=== PATIENT | male | born 1975 | race Caucasian/White ===

== ENCOUNTER 2019-07-30 10:51 | Inpatient (IN) ==
[2019-07-30] MEDS ORDERED: traMADol 50 MG TABLET PO ONE (11:25)
[2019-07-30] MEDS ORDERED: Pregabalin 75 MG CAPSULE PO ONE (11:25)
[2019-07-30] MEDS ORDERED: Celecoxib 200 MG CAPSULE PO ONE (11:25)
[2019-07-30] MEDS ORDERED: Acetaminophen IV 1,000 MG/100 ML INFUS..BTL IVPB ONE (11:26)
--- NOTE | 2019-07-30 12:34 | Anesthesia Evaluation PreOp ---
Date of Encounter: 07/30/19 Time of Encounter: 12:30 - Past History Planned Operation: Robotic Colon Resection Cardiac History: Denies any Significant Hx Pulmonary History: NAFISA Dx (CPAP 6-16) AIRPLANE ENGINEER History: Denies Any Significant HX Other Medical History: Thyroid, Other ([place] Anxiety) Anesthesia History: No Prior Anesthetic Complications Alcohol Use: rarely Drug use: none Medications and Allergies Levothyroxine [Synthroid] 25 mcg PO QAM 02/26/19 [History] Melatonin [Melatin] 9 mg PO HS PRN 02/26/19 [History] Sertraline [Zoloft] 150 mg PO DAILY 02/26/19 [History] hydrOXYzine HCl [Hydroxyzine HCl] 50 mg PO BID PRN 02/26/19 [History] lamoTRIgine [Lamotrigine] 150 mg PO DAILY 02/26/19 [History] Ciprofloxacin [Cipro] 500 mg PO BID 5 Days #10 tablet 06/07/19 [Rx] Ondansetron ODT [Zofran ODT] 4 mg SL Q6HR 4 Days #12 tab.rapdis 06/07/19 [Rx] metroNIDAZOLE [Flagyl] 500 mg PO BID 5 Days #10 tablet 06/07/19 [Rx] Allergy/AdvReac Type Severity Reaction Status Date / Time Penicillins [PCN] Allergy Anaphylaxis Verified 02/27/19 12:07 trazodone Allergy Anaphylaxis Verified 04/11/19 09:06 - Meds/Allergy Pre-op Review Medications Reviewed: Yes Allergies Reviewed: Yes Beta Blockers on Current Med List: No Anesthesia Results - Labs Laboratory Tests 06/07/19 07/16/19 07/16/19 21:29 09:22 09:22 Hgb 15.9 Hct 48.9 Plt Count 260 Sodium 136 Potassium 4.5 BUN 15 Creatinine 1.01 Anesthesia Exam O2 Sat Height 1.68 m Weight 159.211 kg O2 Sat by Pulse Oximetry 96 Vital Signs Temp Pulse Resp BP Pulse Ox 98.6 F 68 18 139/93 96 07/30/19 11:23 07/30/19 11:23 07/30/19 11:23 07/30/19 11:23 07/30/19 11:23 Height: 5'6 Weight: 351 lbs NPO (# of Hours): [place] Pain Scale: 0 - HEENT Pupil (Motor): Pupils equal, EOMI Mallampati: III Teeth: Normal Oral Opening: Less than or equal to 3 - AIRPLANE ENGINEER LOC: Oriented AIRPLANE ENGINEER Motor: Normal RUE, Normal LUE, Normal RLE, Normal LLE, Normal Face AIRPLANE ENGINEER Sensory: Normal: RUE, LUE, RLE, LLE, Face - Cardiac Rhythm: Regular Murmur: None JVD: No Carotid Bruit: No - Pulmonary Breath Sounds: bilateral Clear Respiratory Effort: Symmetrical Anesthesia Assess/Plan ASA Score: 3 (MO NAFISA) Level of consciousness: Cooperative, Oriented Anesthetic Plan: General Autologous Blood: No Monitoring Plan: Standard Monitors Recovery Plan: PACU (Discussed GA, agrees to proceed)
[2019-07-30] MEDS ORDERED: Clindamycin 900 MG/50 ML 900 MG/50 ML IV.SOLN IVPB ONE ×2 (12:36→17:44)
[2019-07-30] MEDS ORDERED: *HR* Propofol 200 MG/20 ML VIAL IVP ONE ×2 (12:38→13:53)
[2019-07-30] MEDS ORDERED: Ringers Solution, Lactated 1,000 ML IVC SCH (12:45)
--- NOTE | 2019-07-30 13:11 | General Surg History&Physical ---
Date of Encounter: 07/30/19 Time of Encounter: 13:08 Assessment and Plan (1) Perforation of sigmoid colon due to diverticulitis Current Visit: Yes Status: Acute The assessment and plan as outlined above was discussed with the patient and/or family members who expressed understanding and agreement. All questions were answered. patients first episode of diverticulitis was severe with perforation/abscess formation. Planning robotic, possible open sigmoid colectomy. Risks and benefits previously discussed and he wishes to proceed (2) Hypothyroid Current Visit: Yes Status: Chronic The assessment and plan as outlined above was discussed with the patient and/or family members who expressed understanding and agreement. All questions were answered. continue synthroid either po or iv Qualifiers: Hypothyroidism type: unspecified Qualified Code(s): E03.9 - Hypothyroidism, unspecified History of Present Illness Chief complaint: perforated sigmoid diverticulitis HPI: Mr. Kevin is a 43 year old male with a history of perforated sigmoid diverticulitis. Planning robotic possible open sigmoid colectomy Past Med Surg Social Fam HX - Past Medical History Medical history: thyroid disease Additional medical history: PTSD, Diverticulitis, ANXIETY Psychiatric history: no psych history, PTSD - Past Surgical History Additional surgical history: hernia surgery- 4yr old - Social History Smoking Status: Never smoker Smokeless Tobacco Status: Yes (snuff) Alcohol use: rarely Drug use: none - Family History Mother Hx Family GI Disorders: Yes (diverticulitis) Medications and Allergies Levothyroxine [Synthroid] 25 mcg PO QAM 02/26/19 [History] Melatonin [Melatin] 9 mg PO HS PRN 02/26/19 [History] Sertraline [Zoloft] 150 mg PO DAILY 02/26/19 [History] hydrOXYzine HCl [Hydroxyzine HCl] 50 mg PO BID PRN 02/26/19 [History] lamoTRIgine [Lamotrigine] 150 mg PO DAILY 02/26/19 [History] Allergy/AdvReac Type Severity Reaction Status Date / Time Penicillins [PCN] Allergy Anaphylaxis Verified 07/30/19 12:55 trazodone Allergy Anaphylaxis Verified 07/30/19 12:55 Review of Systems All systems PM: reviewed and no additional remarkable complaints except as stated All systems PM: The remainder of the systems were reviewed and are negative General Surgery Exam Initial Vital Signs Temp Pulse Resp BP Pulse Ox 98.6 F 68 18 139/93 96 07/30/19 11:23 07/30/19 11:23 07/30/19 11:23 07/30/19 11:23 07/30/19 11:23 - General physical appearance well developed, no distress, no pain, obese - Eyes PERRL, normal ocular movement - ENT normal pinna - Neck no masses - Respiratory normal expansion, normal respiratory effort - Cardiovascular Cardiovascular exam: Present: RRR - Abdomen Abdomen general surgery: Present: bowel sounds present, soft, non tender - Integumentary Integumentary general surgery: Present: warm and dry - Neurologic Present: CN 2-12 grossly intact - Musculoskeletal Present: normal posture - Psychiatric Psychiatric general surgery: Present: A&Ox3 Results - Labs All other labs normal.
[2019-07-30] MEDS ORDERED: Naloxone 0.4 MG/ML INJ ONE (13:15)
[2019-07-30] MEDS ORDERED: Lidocaine -MPF 2% 2 ML VIAL ONE (13:15)
[2019-07-30] MEDS ORDERED: *HR* Rocuronium Bromide 50 MG/5 ML VIAL ONE ×3 (13:15→16:59)
[2019-07-30] MEDS ORDERED: *HR* FentaNYL (PF) 100 MCG/2 ML VIAL ONE (13:19)
[2019-07-30] MEDS ORDERED: *HR* Midazolam HCl 2 MG/2 ML VIAL ONE (13:19)
[2019-07-30] MEDS ORDERED: Lidocaine HCL 4 ML Topical Solution (Laryng-O-Jet Kit Sterile Pak) TP ONE (13:20)
[2019-07-30] MEDS ORDERED: *HR* Remifentanil 2 MG VIAL IVP ONE (13:25)
[2019-07-30] MEDS ORDERED: EPHEDrine 50 MG/ML VIAL ONE (14:19)
[2019-07-30] MEDS ORDERED: Ondansetron 4 MG/2 ML VIAL ONE (14:57)
[2019-07-30] MEDS ORDERED: Dexamethasone 4 MG/ML VIAL ONE (14:57)
[2019-07-30] MEDS ORDERED: *HR* Remifentanil 1 MG VIAL IVP ONE ×2 (15:48→16:35)
[2019-07-30] MEDS ORDERED: *HR* HYDROMORPHONE 2 MG/ML VIAL ONE (17:36)
--- NOTE | 2019-07-30 18:15 | Operative Note ---
Date of procedure: 07/30/19 Pre-op diagnosis: Perforated sigmoid diverticulitis with abscess Post-op diagnosis: same Procedure: Robotic sigmoid colectomy Complications: none immediate Anesthesia: ODALISA, local Surgeon: Abby Zhou Was there an logistics assistant present: Yes Dental Assisting Instructor: Precious Campos Estimated blood loss (cc): 50 IV fluids (cc): 2,600 Urine output (cc): 500 Specimen: sigmoid colon, anastomotic rings Condition: stable Disposition: PACU Procedure in Detail: Patient was brought into the operating suite and placed supine on the operating table. Sign in was performed and everyone was in agreement. Anesthesia was induced and patient was endotracheally intubate by anesthesia without incident. Christie catheter was placed by the circulating nurse and an NG tube was placed by anesthesia. The patient's leg were placed in yellowfin stirrups. Folded sheet was placed beneath patient's buttocks for elevation. The abdomen buttock and perineum were prepped and draped in the usual sterile fashion. Timeout was performed again everyone was in agreement. Stab incision left upper quadrant was made through the skin and the subcutaneous tissue with an 11 blade. Veress needle was placed through this and water drop test confirmed placement and the abdomen was entered with a 5 mm 0 degree laparoscope on a 5 mm XL trocar. The area under entry was visualized there was no bleeding or apparent bowel injury. An upper midline incision above the umbilicus was made with an 11 blade and a 8 mm robotic port was placed to this under direct visualization. A 12 mm port was placed under direct visualization several centimeters laterally to the right and inferior to the umbilicus after first incising the skin with an 11 blade, and placed under direct visualization. A right lower quadrant 12 mm robotic port was placed under direct visualization after first incising skin with an 11 blade. The 5 mm xcel trocar was exchanged for an 8 mm robotic port. A 5 mm as sist port was placed in the right lateral abdominal wall under direct visualization after first incising the skin with an 11 blade. Patients sigmoid colon was densely adherent the the left lower quadrant abdominal wall as was the omentum. The adhesions were taken down with gentle blunt dissection and and scissors (heated) freeing up the omentum and sigmoid. The patient was placed in Trendelenburg right side down position. The omentum and small bowel was moved into the patients right upper abdomen. The robot was brought over the patient's right abdomen and all port sites docked. The sigmo id was elevated anteriorly and an opening in the mesentery just beneath the left colic vessel was made with the vessel sealer after the pelvic inlet was identified. Dissection inferior to the left colic vessel was accomplished with the vessel sealer , dissection proceeded laterally toward the left abdominal wall and identification of the left ureter accomplished. The left ureter was visualized throughout the remainder of the procedure and kept out of harm's way. The CHAS and IMV were taken down with the vessel sealer. Dissection of the left colon mesentary proceeding proximally was done with the vessel sealer. The sigmoid was elevated out of the pelvis. Dissection of the sigmoid mesentery continued inferiorly with a vessel sealer to the proximal rectum. The rectal mesentery was taken off the rectum posteriorly with a vessel sealer to allow for staple transection. The proximal rectum was transected with the 60 mm robotic stapler, 1 green load. The sigmoid colon was dissected off the left lateral abdominal wall using gentle blunt dissection the vessel sealer keeping the left ureter visualized and out of harm's way, this dissection was carried up to just below the splenic flexure. The robot was undocked. A lower midline incision above the pubic symphysis was made with a 15 blade. Dissection through the subcutaneous tissue to the fascia was made with the Bovie. The fascia was split in the midline with the Bovie. A medium Cy was placed in the abdominal incision. The proximal rectum/sigmoid was pulled up through the abdominal incision. The colon was palpated and an area of the distal descending colon was chosen for transection. An opening in the mesentery at this level was made with a hemostat. Two Sheela's were placed proximally and distally on the mesentery was transected with a hemostat and then ligated with a 3-0 silk stitch. A nondisposable pursestring stapling device was placed at this site, 2-0 prolene stitch placed through the pursestring device and the colon was transected with heavy Agrcia scissors. The proximal rectum and sigmoid colon were placed off to the back table for pathology. The dilators were placed into the open descending colon up to the 29 mm. The 29 mm Ethicon EEA stapling device was chosen for the colorectal anastomosis. The anvil was placed into the open descending colon and the Prolene stitch tied. The bowel was returned to the abdomen. The abdominal wall fascia was reapproximated with two #1 nonlooped PDS running stitches meeting in the middle. The subcutaneous tissue was irrigated with sterile saline, and reapproximated with 3-0 vicryl the skin was closed with serene. The robot was brought over the patients right abdomen and docked. The rectal dilators were used to dilate the rectum and the 29mm EEA stapler was used to create the colorectal anastomosis. The anvil was placed on the spike and the stapler deployed. A leak test was done with a 30cc christie balloon through the anus , and rectum insufflated with 140 mL of air and no leak was obvious. The pelvis was irrigated with sterile saline. The robot was undocked. All trochars removed. The two 12 mm right lower quadrant port sites, the abdominal wal,l was closed with an 0 Vicryl [id number] stitches. All trocar sites at the skin were closed with serene. 4 x 4 gauze and Medipore tape were applied at the lower midline incision as a dressing and Band-Aids were placed at the other incision sites. Patient tolerated the procedure well. All lap and ensuring counts were correct at the end of the case. Christie catheter remained with the p atient after surgery. NG tube was removed by anesthesia. Patient was awoken by anesthesia and extubated in the OR without incident. Patient is taken to PACU in stable condition
[2019-07-30] MEDS ORDERED: *HR* Meperidine 25 MG/ML SYRINGE IVP PRN (18:17)
[2019-07-30] MEDS ORDERED: Ondansetron 4 MG/2 ML VIAL IVP ONE (18:17)
[2019-07-30] MEDS: *HR* FentaNYL (PF) 100 MCG/2 ML VIAL IVP PRN ×2 (18:51→19:02)
[2019-07-30] MEDS ORDERED: Naloxone 0.4 MG/ML INJ IVP PRN (19:58)
[2019-07-30] MEDS ORDERED: *HR* OxyCODONE/APAP 5/325 TABLET PO PRN (19:58)
[2019-07-30] MEDS ORDERED: *HR* Metoprolol 5 MG/5 ML VIAL IVP PRN (19:58)
[2019-07-30] MEDS ORDERED: Ondansetron 4 MG/2 ML VIAL IVP PRN (19:58)
--- NOTE | 2019-07-30 20:19 | Anesthesia Evaluation Post Op ---
Date of Encounter: 07/30/19 Time of Encounter: 20:18 - Vital Signs Vital Signs: Vital Signs/O2 Sat, Most Current Temp Pulse Resp BP Pulse Ox 98.2 F 74 16 128/84 93 07/30/19 20:01 07/30/19 20:01 07/30/19 20:01 07/30/19 20:01 07/30/19 20:01 - Lungs Lungs: Clear Ascult./Percussion - Airway Airway: Non-obstructed - Cardiovascular Regular Rate - Mental Status Mental Status: Asleep with brisk response to light stimulation - Pain Pain Scale: 0 Pain Scale used: Numeric (1 - 10) - Nausea Vomiting Nausea Vomiting: Not Present - Hydration Hydration: Ice chips, Cobb catheter - Discharge PostOp Status: Transfer Patient to floor
[2019-07-30] MEDS: 0.9 % Sodium Chloride 1,000 ML IVC SCH (21:14)
[2019-07-31] MEDS: Ketorolac 15 MG/ML VIAL IVP SCH ×5 (00:20→23:47)
[2019-07-31] MEDS: *HR* Promethazine 25 MG/ML VIAL IVP PRN ×2 (00:28→22:35)
[2019-07-31 04:19] LABS: Basophils % 0.2 %; Hematocrit 45.8 % (37.5-50.1); Hemoglobin 15.2 g/dL (12.9-16.9); Immature Granulocytes % 0.4 % (0-4); Lymphocytes # 0.7 K/mcL (0.6-4.6); Lymphocytes % 6.9 %; Mean Corpuscular HGB Conc 33.2 g/dL (31.6-35.5); Mean Corpuscular Hemoglobin 29.3 pg (28.0-33.3); Mean Corpuscular Volume 88.2 fL (83.0-100.0); Mean Platelet Volume 10.2 fL (9.4-12.4); Monocytes # 0.5 K/mcL (0.0-1.3); Monocytes % 4.5 %; Platelet Count 288 K/mcL (140-400); Red Blood Count 5.19 M/mcL (4.19-5.50); Red Cell Distribution Width 12.2 % (11.5-14.5); White Blood Count 10.3 K/mcL (4.3-11.1)
[2019-07-31 04:36] LABS: BUN/Creatinine Ratio 15 (6-26); Blood Urea Nitrogen 13 mg/dL (6-20); Calcium 8.7 mg/dL (8.6-10.3); Carbon Dioxide 25 mEq/L (23-29); Chloride 105 mEq/L (98-107); Glucose 123 mg/dL (70-105); Magnesium 1.9 mg/dL (1.6-2.6); Osmolality,Calculated 285 (280-300); Phosphorous 3.4 mg/dL (2.7-4.5); Potassium 4.2 mEq/L (3.5-5.1); Sodium 137 mEq/L (136-145); eGFR For African Americans > 60 (> 60); eGFR For Non-African Americans > 60 (> 60)
[2019-07-31] MEDS: Levothyroxine 25 MCG TABLET PO SCH (06:11)
[2019-07-31] MEDS: Pantoprazole 40 MG VIAL IVP SCH (06:11)
[2019-07-31] MEDS: 0.9 % Sodium Chloride 1,000 ML IVC SCH ×4 (06:18→23:47)
[2019-07-31] MEDS: lamoTRIgine 100 MG TABLET PO SCH (09:51)
--- NOTE | 2019-07-31 11:38 | General Surgery Progress Note ---
<Ashely Bernal Meka - Last Filed: 07/31/19 11:36> Date of Encounter: 07/31/19 Time of Encounter: 11:36 - Assessment and Plan (1) Diverticulitis Current Visit: Yes Status: Chronic Date of procedure: 07/30/19 Pre-op diagnosis: Perforated sigmoid diverticulitis with abscess Post-op diagnosis: same Procedure: Robotic sigmoid colectomy Complications: none immediate Anesthesia: GETA, local Surgeon: Abby Zhou POD #1 as above. Pathology remains pending. He is recovering quite well. He reports passing flatus and has ABS Plan: Continue supportive care and discomfort management while awaiting full return of bowel function NPO except ice chips and Popsicles Continue G.I. and DVT prophylaxis Incentive spirometry 10 times every hour while awake Out of bed to chair TID, do not offer meal trays while in the bed Activity as tolerated Apply ice 20 minutes on 20 minutes off as needed continue to closely monitor (2) Hypothyroid Current Visit: Yes Status: Chronic Continue home medications Qualifiers: Hypothyroidism type: unspecified Qualified Code(s): E03.9 - Hypothyroidism, unspecified (3) PTSD (post-traumatic stress disorder) Current Visit: Yes Status: Chronic Continue home medications Subjective Narrative: Pt reports little abdominal pain. Soreness when moving. States he passed gas last night. Denies n/v. has not been OOB, but would like to. Objective Vital Signs - Last 8 Hours Temp Pulse Resp BP Pulse Ox 07/31/19 11:20 97.6 F 61 16 103/59 95 07/31/19 08:15 98.1 F 59 15 111/68 95 07/31/19 04:13 97.1 F L 62 15 113/72 96 Intake and Output 07/30/19 07/31/19 07/31/19 23:59 07:59 15:59 Intake Total 1120 / 1120 Output Total 675 / 675 1100 / 1500 400 / 1500 Balance -675 / -675 20 / -380 -400 / -380 Intake: IV Fluids 1000 / 1000 0.9 % Sodium Chloride 1,000 ML 1000 / 1000 @ 130 mls/hr IVC .Q7H42M [facility] Rx #:[id number] Oral 120 / 120 Output: Urine 500 / 500 0 / 400 400 / 400 Estimated Blood Loss 50 / 50 Urine Amount (Catheter) 125 / 125 Catheter 1100 / 1100 Urethral (Christie) 1100 / 1100 Other: Weight 160.5 kg Blood Glucose* 117 Patient Weight 07/31/19 23:59 Weight 160.5 kg - General physical appearance no distress, no pain - ENT normal mucosa, atraumatic, normocephalic - Neck Neck exam: trachea midline - Respiratory normal expansion, normal respiratory effort, clear to auscultation - Cardiovascular Cardiovascular exam: Present: RRR, distant heart sounds - Abdomen Abdomen: Present: bowel sounds present, soft, tender (expected postoperative) Hernia: none - Incision Incision: Present: clean and dry, intact - Integumentary no rash - Neurologic normal sensation - Musculoskeletal normal posture - Psychiatric oriented to time, oriented to person, oriented to place, speech is normal, memory intact - Labs 07/31/19 03:29 07/31/19 03:29 Diabetes panel 07/31/19 Range/Units 03:29 Sodium 137 (136-145) mEq/L Potassium 4.2 (3.5-5.1) mEq/L Chloride 105 (98-107) mEq/L Carbon Dioxide 25 (23-29) mEq/L BUN 13 (6-20) mg/dL Creatinine 0.89 (0.70-1.30) mg/dL Glucose 123 H (70-105) mg/dL Calcium 8.7 (8.6-10.3) mg/dL Calcium panel 07/31/19 Range/Units 03:29 Calcium 8.7 (8.6-10.3) mg/dL Phosphorus 3.4 (2.7-4.5) mg/dL Pituitary panel 07/31/19 Range/Units 03:29 Sodium 137 (136-145) mEq/L Potassium 4.2 (3.5-5.1) mEq/L Chloride 105 (98-107) mEq/L Carbon Dioxide 25 (23-29) mEq/L BUN 13 (6-20) mg/dL Creatinine 0.89 (0.70-1.30) mg/dL Glucose 123 H (70-105) mg/dL Calcium 8.7 (8.6-10.3) mg/dL Adrenal panel 07/31/19 Range/Units 03:29 Sodium 137 (136-145) mEq/L Potassium 4.2 (3.5-5.1) mEq/L Chloride 105 (98-107) mEq/L Carbon Dioxide 25 (23-29) mEq/L BUN 13 (6-20) mg/dL Creatinine 0.89 (0.70-1.30) mg/dL Glucose 123 H (70-105) mg/dL Calcium 8.7 (8.6-10.3) mg/dL Consult Discharge Plan - Plan Referrals: [facility] Care Provider[facility] - <Abby Zhou - Last Filed: 08/01/19 09:09> Date of Encounter: 07/31/19 - Assessment and Plan (1) Perforation of sigmoid colon due to diverticulitis Current Visit: Yes Status: Resolved pod 1 robotic sigmoid colectomy popcicles and ice chips today ivf hydration pain well controlled with toradol OOB ambulating christie removed this am, urinating without issues passing flatus, passed two bloody stools (2) Hypothyroid Current Visit: Yes Status: Chronic Qualifiers: Hypothyroidism type: unspecified Qualified Code(s): E03.9 - Hypothyroidism, unspecified (3) PTSD (post-traumatic stress disorder) Current Visit: Yes Status: Chronic Subjective Patient reports: no new complaints, still having pain, pain is less, voiding w/o difficulty, flatus, bowel movement (bloody ) Objective Vital Signs - Last 8 Hours Temp Pulse Resp BP Pulse Ox 08/01/19 06:47 97.6 F 56 14 118/78 95 08/01/19 04:19 98.5 F 56 14 108/70 97 Intake and Output 07/31/19 08/01/19 08/01/19 23:59 07:59 15:59 Intake Total 2240 / 3360 0 / 0 Output Total 400 / 2050 0 / 0 Balance 1840 / 1310 0 / 0 0 / 0 Intake: IV Fluids 2000 / 3000 0.9 % Sodium Chloride 1,000 ML 2000 / 3000 @ 130 mls/hr IVC .Q7H42M [facility] Rx #:[id number] Oral 240 / 360 0 / 0 Output: Urine 400 / 950 0 / 0 Other: Meal npo Percent of Meal Consumed 0% Stool Size Moderate Stool Consistency liquid Stool Color Brown Blood Tinged # Bowel Movements 2 Weight 161.2 kg Blood Glucose* 83 86 Patient Weight 08/01/19 23:59 Weight 161.2 kg - General physical appearance well developed, well nourished, no distress, no pain, obese - Eyes PERRL, normal ocular movement - ENT normal mucosa, normocephalic - Respiratory normal expansion, clear to auscultation - Cardiovascular Cardiovascular exam: Present: RRR - Abdomen Abdomen: Present: bowel sounds present, soft, tender (appropriate post op tenderness) - Incision Incision: Present: clean and dry, intact - Integumentary no rash - Neurologic normal sensation - Musculoskeletal normal posture - Psychiatric oriented to time, oriented to person, oriented to place, speech is normal, memory intact - Labs 07/31/19 03:29 07/31/19 03:29 - Attending Attestation I have personally performed a face to face evaluation on this patient. I have reviewed and agree with the care plan. History and Exam by me shows:
[2019-08-01] MEDS: Levothyroxine 25 MCG TABLET PO SCH (05:54)
[2019-08-01] MEDS: Ketorolac 15 MG/ML VIAL IVP SCH (05:54)
[2019-08-01] MEDS: Pantoprazole 40 MG VIAL IVP SCH (05:54)
[2019-08-01] MEDS ORDERED: Ibuprofen 600 MG TABLET PO PRN (09:00)
[2019-08-01 09:58] VITALS: BP 141/86
[2019-08-01] MEDS: lamoTRIgine 100 MG TABLET PO SCH (10:09)
--- NOTE | 2019-08-01 10:53 | Discharge Summary ---
Orders not resulted at time of discharge: Pending orders 07/30/19 18:20 Surgical Pathology [PTH] Routine Date of Encounter: 08/01/19 Time of Encounter: 10:00 - Discharge Diagnosis (1) Diverticulitis Priority: Primary Status: Resolved (2) Hypothyroid Priority: Secondary Status: Chronic Qualifiers: Hypothyroidism type: unspecified Qualified Code(s): E03.9 - Hypothyroidism, unspecified (3) PTSD (post-traumatic stress disorder) Priority: Secondary Status: Chronic General Surgery Exam Initial Vital Signs Temp Pulse Resp BP Pulse Ox 98.6 F 68 18 139/93 96 07/30/19 11:23 07/30/19 11:23 07/30/19 11:23 07/30/19 11:07/30/19 11:23 - General physical appearance well developed, well nourished, no distress - Eyes normal ocular movement - ENT normal mucosa, atraumatic, normocephalic - Neck trachea midline - Respiratory normal respiratory effort, clear to auscultation - Cardiovascular Cardiovascular exam: Present: RRR, 15, 16 - Abdomen Abdomen general surgery: Present: bowel sounds present, soft, tender (minimal, expected tenderness) - Incision Incision: Present: clean and dry, intact - Integumentary Integumentary general surgery: Present: warm and dry - Neurologic Present: CN 2-12 grossly intact, normal coordination, normal sensation - Musculoskeletal Present: normal gait, normal posture - Psychiatric Psychiatric general surgery: Present: appropriate, oriented to person, oriented to place, oriented to time, speech is normal, memory intact - Hospital Course Hospital course: Mr. Kevin is a 43 year old male with a history of diverticular disease. He is postop day 2 from a robotic sigmoid resection with Dr. Zhou. He is tolerating full liquid diet without nausea or vomiting. He has minimal abdominal discomfort. His vital signs are stable he is afebrile. He is voiding and ambulating without difficulty. We will begin discharge planning to home and plan for outpatient follow-up in the next 10-14 days. - Time Spent with Patient Total time spent providing and/or coordinating discharge services: Less than 30 minutes - Discharge Medications Prescriptions: New Docusate Sodium [Colace] 100 mg PO BID PRN #30 capsule PRN Reason: Constipation Ibuprofen [Motrin] 600 mg PO Q6HR PRN #40 tablet PRN Reason: Pain OxyCODONE/APAP 5/325 [Percocet 5/325 MG] 1 each PO Q6HR PRN 5 Days #20 tablet PRN Reason: Pain Continued Sertraline [Zoloft] 150 mg PO DAILY Melatonin [Melatin] 9 mg PO HS PRN PRN Reason: Sleep Levothyroxine [Synthroid] 25 mcg PO QAM lamoTRIgine [Lamotrigine] 150 mg PO DAILY hydrOXYzine HCl [Hydroxyzine HCl] 50 mg PO BID PRN PRN Reason: Anxiety Home Medications: Levothyroxine [Synthroid] 25 mcg PO QAM 02/26/19 [History] Melatonin [Melatin] 9 mg PO HS PRN 02/26/19 [History] Sertraline [Zoloft] 150 mg PO DAILY 02/26/19 [History] hydrOXYzine HCl [Hydroxyzine HCl] 50 mg PO BID PRN 02/26/19 [History] lamoTRIgine [Lamotrigine] 150 mg PO DAILY 02/26/19 [History] Docusate Sodium [Colace] 100 mg PO BID PRN #30 capsule 08/01/19 [Rx] Ibuprofen [Motrin] 600 mg PO Q6HR PRN #40 tablet 08/01/19 [Rx] OxyCODONE/APAP 5/325 [Percocet 5/325 MG] 1 each PO Q6HR PRN 5 Days #20 tablet 08/01/19 [Rx] Allergies/Adverse Reactions: Allergy/AdvReac Type Severity Reaction Status Date / Time Penicillins [PCN] Allergy Anaphylaxis Verified 07/30/19 12:55 trazodone Allergy Anaphylaxis Verified 07/30/19 12:55 Date of admission: 07/30/19 19:52 Primary care physician: PCP [place] Discharging clinician: Abby Zhou (Paul Perry) Anticipated date of discharge: 08/01/19 Labs on day of discharge: Labs from last 24 hours 07/31/19 07/31/19 12:34 05:30 POC Glucose 99 117 H - Patient Status Disposition: Home, Self-Care Condition: Good Functional capacity at discharge: independent ambulation Overall status at discharge: patient is progressing back to baseline - Discharge Instructions Follow Up With: [place],PCP [Primary Care Provider] - Abby Zhou MD [Partnered Physician] - 08/17/19 9:30 am (Surgery follow-up in [place] office) Additional Instructions: General Surgical Discharge Instructions 1. No pushing, pulling, or lifting greater than 15 lbs for 6 weeks 2. You may shower beginning today, but no tub baths, soaking, or swimming for 2 weeks. 3. You may resume driving when you are off narcotics and are safe to react in a car. 4. Take ibuprofen every 8 hours for discomfort. If this does not relieve discomfort, you may take the as needed Percocet. Take narcotics as directed. Do not take more narcotics then directed and do not share your narcotics with any other person. Do not drink alcohol while on narcotics. 5. Take stool softeners (Colace) or a water based laxative (Miralax) while taking narcotics. You may hold for loose stools. 6. Report any fevers greater than 100.5F, increase abdominal discomfort, drainage that looks like pus, increased redness or pain at the surgical site, or any vomiting. 7. Report any pain in the calves, shortness of breath, or rapid heartbeat. 8. Follow-up in the office as directed. - Diet and Activity Activity: other (See additional instructions above) Diet: other (soft diet for 1 week and then advance to regular diet as tolerated) - Attending Attestation For this encounter, I have reviewed the ROUTE SALES DRIVER or PA documentation, treatment plan, and medical decision making; and I have had face to face time with this patient.
[2019-08-01] MEDS ORDERED: *HR* Heparin 5,000 UNIT/ML VIAL SQ SCH (14:00)
== END 2019-08-01 13:44 | disposition home or self-care (01) | DRG 330 ==
LOC: SAMDAY 10:51 → 3ANU 19:52
PROVIDERS: ADMIT Surgery; ATTEND Surgery